=== PATIENT | female | born 1955 | race Caucasian/White ===

== ENCOUNTER 2019-03-22 13:42 | Inpatient (IN) ==
[2019-03-22] MEDS ORDERED: FENTANYL IV ONE (14:22)
[2019-03-22 14:43] LABS: BASO# 0.01 X1000 (0.0-0.2); BASO% 0.1 % (0.0-0.8); EOS% 1.3 % (0.0-10.0); HEMATOCRIT 39.4 % (37.0-47.0); HEMOGLOBIN 12.6 g/dL (12.0-16.0); IMM GRAN# 0.02 X1000 (0.0-0.04); IMM GRAN% 0.3 % (0.0-0.5); LYMPH# 3.34 X1000 (1.2-3.4); LYMPH% 42.9 % (20.5-51.1); MCH 30.2 PG (27-31); MCV 94.5 FL (81-99); MONO% 7.7 % (1.7-9.3); MPV 12.4 FL (7.4-10.4); NEUT# 3.71 X1000 (1.4-6.5); NEUT% 47.7 % (42.2-75.2); PLT 212 X1000 (130-400); RBC 4.17 XMIL (4.2-5.4); RDW 13.6 % (11.5-14.5); WBC 7.78 X1000 (4.8-10.8)
[2019-03-22 14:44] LABS: INR 0.91; PROTIME 12.7 Seconds (11.0-16.0)
[2019-03-22 14:45] LABS: PTT 28.1 Seconds (22.3-41.8)
[2019-03-22 14:53] LABS: AGAP 13; ALBUMIN 4.4 g/dL (3.5-5.0); ALKALINE PHOSPHATASE 86 U/L (32-104); BUN 11 mg/dL (8-22); CALCIUM 9.2 mg/dL (8.8-10.2); CHLORIDE 106 mmol/L (98-107); COSMO 282; CREATININE 0.8 mg/dL (0.5-0.9); ESTIMATED GFR > 60; GLUCOSE 129 mg/dL (70-104); GOT 16 U/L (10-30); GPT 14 U/L (10-36); POTASSIUM 3.6 mmol/L (3.5-5.1); SODIUM 141 mmol/L (136-145); TCO2 22 mmol/L (25-35); TOTAL PROTEIN 7.2 g/dL (6.3-8.3)
--- NOTE | 2019-03-22 15:14 | Diag Imaging Result Doc PS360 ---
EXAM: CHEST-1 VIEW - 03/22/2019 HISTORY: chest pain TECHNIQUE: Portable chest COMPARISON: 03/07/2017 FINDINGS: Heart size is normal. There are apparent COPD changes similar to prior. Compared to prior, there are no acute changes identified. There is no pleural effusion or pneumothorax identified. IMPRESSION: Apparent COPD changes. No acute changes. Electronically signed by Kevin Mendez 03/22/2019 3:11 PM
[2019-03-22] MEDS ORDERED: MORPHINE IV PRN (15:36)
[2019-03-22] MEDS ORDERED: NS 1,000 ML IV ONE (15:36)
[2019-03-22] MEDS ORDERED: TYLENOL PO PRN ×2 (15:36→19:57)
[2019-03-22] MEDS ORDERED: ZOFRAN IV PRN ×2 (15:36→19:57)
--- NOTE | 2019-03-22 15:36 | PROVIDER DOCUMENTATION ---
This chart was entered by Nicol Swenson Scribe, acting as scribe for Shukri Escobar MD. HPI-Chest Pain - General Chief Complaint: Shoulder Pain Stated Complaint: LT ARM PAIN, CHEST PAIN Time Seen by Provider: 03/22/19 14:09 Source: patient Allergies/Adverse Reactions: Patient Allergies Allergy/AdvReac Type Severity Reaction Status Date / Time azithromycin Allergy Severe ITCHING Verified 02/02/19 12:16 [From Zithromax Z-William] codeine [Codeine] Allergy Severe NAUSEA/VOMI Verified 02/02/19 12:16 TING Penicillins Allergy Severe ANAPHYLAXIS Verified 02/02/19 12:16 Home Medications: Home Medication List Medication Instructions Recorded Confirmed Last Taken Type Thyroid,Pork [Napanoch Thyroid] 90 mg PO DAILY #30 tablet 10/24/16 03/22/19 03/06/17 07:00 Rx - History of Present Illness-CP Nature of Presenting Problem: Patient is a 63 year old female who presents with left side chest pain that radiates to left arm. States pain has been present intermittently for 1 month. Reports pain worsened today and had dizziness with pain. Denies nausea and vomiting Location: reports: other (left) Chest Pain Radiation: reports: arms (left) Quality of Pain: reports: sharp Severity in ED: mild Onset/Duration: other (1 month) Timing: still present, intermittent, getting worse Context/Activities at Onset: reports: light activity Modifying Factors: improves with: nothing Associated Symptoms: reports: dizziness Prior Chest Pain/Cardiac Workup: denies: cardiac cath, echocardiography, stress test Similar Symptoms Previously?: Yes Recently Seen Here or By Another Healthcare Provider: No Review of Systems - Adult - REVIEW OF SYSTEMS - ADULT Constitutional: reports: no symptoms reported Eyes: reports: no symptoms reported Ears, Nose, Mouth & Throat: reports: no symptoms reported Cardiovascular: reports: see HPI, chest pain. denies: irregular heart rate, palpitations Respiratory: reports: no symptoms reported Gastrointestinal: reports: no symptoms reported Genitourinary: reports: no symptoms reported Musculoskeletal: reports: see HPI, other (left shoulder pain). denies: back pain, neck pain Integumentary: reports: no symptoms reported Neurological: reports: see HPI, dizziness/vertigo (dizziness). denies: headache/migraines, seizure, syncope Psychiatric: reports: no symptoms reported Endocrine: reports: no symptoms reported Hematologic/Lymphatic: reports: no symptoms reported Allergic/Immunologic: reports: no symptoms reported All Other Systems: Reviewed and Negative Past History - Adult - PAST MEDICAL HISTORY-ADULT Review of Records: reports: Old Records Reviewed, Social history reviewed & non- contributory. Major Childhood Illnesses: reports: denies history Cardiovascular: reports: denies history Respiratory: reports: denies history Gastrointestinal: reports: denies history Obstetrical/Gynecological: reports: denies history Genitourinary: reports: denies history Musculoskeletal: reports: denies history Neurological: reports: denies history Psychiatric: reports: denies history Endocrine/Immune: reports: thyroid disorder Other Conditions: reports: denies history - PRIOR SURGERIES/PROCEDURES Surgical/Procedure History: reports: hysterectomy, hernia repair - IMMUNIZATION STATUS Childhood Immunizations: See Nurse Assessment Flu Vaccine: See Nurse Assessment - FAMILY HISTORY Family History: CAD under 55yo (brother at 30yo) - SOCIAL HISTORY Smoking: cigarettes, greater than 1 pack/day Provider spent 3-5 mins advising pt. on dangers of tobacco.: Discussed manners to quit use, and f/u contacts for add'l counseling. Substance Use: denies Physical Exam-General - PHYSICAL EXAM-ADULT Initial Vital Signs Reviewed: Yes - CONSTITUTIONAL General Appearance: alert, no apparent distress. negative: lethargic - HEAD, EARS, NOSE, MOUTH & THROAT HENMT: normocephalic/atraumatic, moist mucous membranes. negative: angioedema - MUSCULOSKELETAL Extremity: normal inspection. negative: erythema, swelling - SKIN Integumentary: normal color, normal turgor, warm/dry. negative: diaphoresis, ecchymosis, rash - NEUROLOGIC Neurologic: grossly normal. negative: aphasia, facial droop - PSYCHIATRIC Psych/Mental Status: normal mood/affect, oriented x 3. negative: disheveled Progress - PLAN OF CARE/RESULTS Progress/Plan/Lab Results: Vital Signs - 8 hr 03/22/19 13:48 Temperature 98.0 F Pulse Rate 72 Respiratory Rate 16 Blood Pressure 112/088 O2 Sat by Pulse Oximetry 98 Laboratory Results - last 24 hr 03/22/19 03/22/19 03/22/19 14:00 14:00 14:00 WBC 7.78 RBC 4.17 L Hgb 12.6 Hct 39.4 MCV 94.5 MCH 30.2 MCHC 32.0 L RDW Std Deviation 13.6 Plt Count 212 MPV 12.4 H Immature Gran % (Auto) 0.3 Neut % (Auto) 47.7 Lymph % (Auto) 42.9 [place] % (Auto) 7.7 Eos % (Auto) 1.3 Baso % (Auto) 0.1 Immature Gran # (Auto) 0.02 Neut # (Auto) 3.71 Lymph # (Auto) 3.34 [place] # (Auto) 0.60 H Eos # (Auto) 0.10 Baso # (Auto) 0.01 PT INR PTT (Actin FS) Sodium 141 Potassium 3.6 Chloride 106 Carbon Dioxide 22 L Anion Gap 13 BUN 11 Creatinine 0.8 Estimated GFR/1.73 m2 > 60 BUN/Creatinine Ratio 14 Glucose 129 H Calculated Osmolality 282 Calcium 9.2 Total Bilirubin 0.20 AST 16 ALT 14 Alkaline Phosphatase 86 Troponin T < 0.010 [id number] Pept Total Protein 7.2 Albumin 4.4 Globulin 3.0 Albumin/Globulin Ratio 2.0 03/22/19 03/22/19 14:00 14:00 WBC RBC Hgb Hct MCV MCH MCHC RDW Std Deviation Plt Count MPV Immature Gran % (Auto) Neut % (Auto) Lymph % (Auto) [place] % (Auto) Eos % (Auto) Baso % (Auto) Immature Gran # (Auto) Neut # (Auto) Lymph # (Auto) [place] # (Auto) Eos # (Auto) Baso # (Auto) PT 12.7 INR 0.91 PTT (Actin FS) 28.1 Sodium Potassium Chloride Carbon Dioxide Anion Gap BUN Creatinine Estimated GFR/1.73 m2 BUN/Creatinine Ratio Glucose Calculated Osmolality Calcium Total Bilirubin AST ALT Alkaline Phosphatase Troponin T [id number]-[id number] Pept 113 Total Protein Albumin Globulin Albumin/Globulin Ratio Orders Category Date Time Status EKG PRN for Chest Pain ORDERED Care 03/22/19 14:20 Active cxr [CHEST-1 VIEW] [RAD] Stat Exams 03/22/19 14:20 Completed CBC WITH ELECTRONIC DIFF [HEME] Stat Lab 03/22/19 14:00 Completed COMPREHENSIVE METABOLIC PANEL [CHEM] Stat Lab 03/22/19 14:00 Completed PRO B-NATRIURETIC PEPTIDE Stat Lab 03/22/19 14:00 Completed PROTIME WITH INR [COAG] Stat Lab 03/22/19 14:00 Completed PTT [COAG] Stat Lab 03/22/19 14:00 Completed TROPONIN T Stat Lab 03/22/19 14:00 Completed Fentanyl Med 03/22/19 14:22 Discontinued 50 microgm IV NOW ONE Workup negative, spoke with Dr. Wilson and will admit to his service for a chest pain workup Result Diagrams: 03/22/19 14:00 03/22/19 14:00 - EKG 1 Time of EKG reading by physician:: 13:53 EKG Read and Signed by:: Shukri Escobar EKG Interpretation (*Must complete 3 of following elements*): Normal Rate: 73 Rhythm: normal sinus rhythm [place]: normal QRS: normal [place] Interval: normal ST Wave: normal Comments: normal ECG - XRAY 1 XRAY Study: Chest Impression: See EMR Report ( EXAM: CHEST-1 VIEW - 03/22/2019 HISTORY: chest pain TECHNIQUE: Portable chest COMPARISON: 03/07/2017 FINDINGS: Heart size is normal. There are apparent COPD changes similar to prior. Compared to prior, there are no acute changes identified. There is no pleural effusion or pneumothorax identified. IMPRESSION: Apparent COPD changes. No acute changes. Electronically signed by Kevin Mendez 03/22/2019 3:11 PM 03/22/19 1511 Interpreting Physician: Kevin Mendez MD Dictated Date/Time: 03/22/19 1509 cc: Shukri Escobar MD; None,PCP) - CONSULTS/PCP/HOSPITALIST Notification #1 *Consult/PCP/Hospitalist*: Dr. Wilson Time Discussed: 15:30 Reason/Comments: Dr. Escobar consulted with Dr. Wilson about patient. Departure - Departure Date of Disposition Decision: 03/22/19 Time of Disposition Decision: 15:34 DIAGNOSIS: Chest pain Qualifiers: Chest pain type: other chest pain Qualified Code(s): R07.89 - Other chest pain; R07.8 - Other chest pain Disposition: ADMITTED INPATIENT 09 Certified Medical Emergency: Emergent Condition: Stable Referrals and Follow-Ups: None,PCP [Primary Care Provider] - - Critical Care Note This patient required my direct & personal management of CC.: No Attestation - Physician/ DALJIT Attestation Patient care was provided by Advanced Practice Provider:: No The physician spent face to face time with patient:: Yes Advanced Practice Provider documentation review:: Supervising physician onsite and consulted in the evaluation and care of this patient. The physician did have a face to face encounter with the patient. This chart was documented by the indicated scribe, (Nicol Swenson Scribe) and accurately reflects the services I performed and decisions made by me, Shukri Escobar MD, as attested by the provider's signature.
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
--- NOTE | 2019-03-22 17:43 | Diag Imaging Result Doc PS360 ---
EXAM: CT ANGIOGRAM PULMONARY ARTERIES - 03/22/2019 HISTORY: progressive sob, smoker TECHNIQUE: CT angiogram pulmonary arteries with intravenous contrast. Axial, 2-D coronal MIP, and 3-D MIP images are obtained. COMPARISON: None. FINDINGS: There are no filling defects identified in the pulmonary arteries. There is no indication of aortic dissection. There is small apparent fibrosis/scarring with peripheral honeycombing at the left upper lobe. There is mild dependent atelectasis. There is no consolidation, pleural effusion, or pneumothorax identified. There is a nonspecific 4 mm nodular opacity at the right middle lobe. There are nonspecific small mediastinal lymph nodes. There are no substantially less than enlarged mediastinal or hilar lymph nodes identified. There is a medium size hiatal hernia. Included sections of upper abdomen show colonic diverticulosis. IMPRESSION: No evidence of pulmonary embolism. Some fibrosis/scarring at left upper lobe. No evidence of pneumonia. No pneumothorax. Nonspecific 4 mm nodular opacity at right middle lobe. Follow-up per Fleischner Society guidelines is recommended. Nonspecific small mediastinal lymph nodes. Medium size hiatal hernia. Electronically signed by Kevin Mendez 03/22/2019 5:41 PM
--- NOTE | 2019-03-22 18:27 | EKG Report ---
Test Performed on : 03/22/2019 1:53:48 PM Test Reason : cp Blood Pressure : / mmHG Vent. Rate : 073 BPM Atrial Rate : 073 BPM P-R Int : 158 ms QRS Dur : 072 ms QT Int : 390 ms P-R-T Axes : 040 045 037 degrees QTc Int : 429 ms Normal sinus rhythm. Normal ECG When compared with ECG of 08-MAR-2017 06:56, No significant change was found Unconfirmed Result
[2019-03-22] MEDS: ASPIRIN PO SCH (20:50)
[2019-03-22] MEDS ORDERED: LOVENOX SUBQ SCH (21:00)
[2019-03-23 05:35] LABS: HEMATOCRIT 38.3 % (37.0-47.0); HEMOGLOBIN 12.2 g/dL (12.0-16.0); MCHC 31.9 g/dL (33-37); MCV 94.1 FL (81-99); MPV 12.3 FL (7.4-10.4); RBC 4.07 XMIL (4.2-5.4); RDW 13.4 % (11.5-14.5); WBC 6.01 X1000 (4.8-10.8)
[2019-03-23 06:01] LABS: AGAP 10; BUN 13 mg/dL (8-22); CALCIUM 9.5 mg/dL (8.8-10.2); CHLORIDE 109 mmol/L (98-107); COSMO 279; CREATININE 0.8 mg/dL (0.5-0.9); ESTIMATED GFR > 60; GLUCOSE 96 mg/dL (70-104); POTASSIUM 4.2 mmol/L (3.5-5.1); SODIUM 140 mmol/L (136-145); TCO2 22 mmol/L (25-35)
[2019-03-23] MEDS ORDERED: PRILOSEC PO SCH (07:00)
[2019-03-23] MEDS: ASPIRIN PO SCH (08:45)
[2019-03-23] MEDS ORDERED: THYROID PO SCH (09:00)
--- NOTE | 2019-03-23 10:21 | PROGRESS NOTE ---
DATE: 03/23/2019 SUBJECTIVE: The patient reports no chest pain is gone. Denies any fever or chills. OBJECTIVE: Vital Signs: Temperature 98 degrees, heart rate 65, respiratory rate 18, blood pressure 124/51, O2 saturation 100% on room air. General: This is a 63-year-old female lying in bed, in no acute distress. Cardiovascular: S1 and S2 heard. No murmurs, gallops, or rubs. Regular rate and rhythm. Respiratory: Decreased breath sounds globally. No crackles or wheezing noted in both pulmonary bases. Patient not using any accessory muscles or having work of breathing. Abdomen: Soft, nontender to palpation. Bowel sounds present. No organomegaly. Extremities: No clubbing, cyanosis, or edema. Peripheral pulses present in both legs. Neurological: Patient alert and oriented x3. Moves 4 extremities. LABORATORY DATA: Three sets of troponin have been checked and those are normal. ASSESSMENT: 1. Chest pain. 2. Hypertension. 3. Subclinical chronic obstructive pulmonary disease. 4. Fibromyalgia. PLAN: At this point, the patient is stable. She has been admitted for chest pain. Troponin has been checked 3 times and those are negative. At this point, we are waiting for first echocardiogram. We are planning to do a Lexiscan stress test on Monday. We will see what it shows. If that exam is normal, we will discharge this patient. A CT angio of the chest done for progressive dyspnea was negative for PE, just shows some emphysematous changes related to COPD. At this point, we will continue to monitor. cc: Juan Francisco Rodarte MD
[2019-03-23 11:42] VITALS: BP 159/80
--- NOTE | 2019-03-23 16:13 | DISCHARGE SUMMARY ---
ADMISSION DATE: 03/22/2019 DISCHARGE DATE: 03/23/2019 ADMISSION DIAGNOSES: 1. Chest pain. 2. Hypertension. 3. Subclinical chronic obstructive pulmonary disease. 4. Fibromyalgia. DISCHARGE DIAGNOSES: 1. Chest pain that has resolved. Wants to have Lexiscan as an outpatient. 2. Hypertension, stable. 3. Chronic obstructive pulmonary disease, no exacerbation. 4. Fibromyalgia. 5. Tobacco abuse. CONSULTS: None. SURGERIES AND PROCEDURES: None. HOSPITAL COURSE: Ms. Erin Yeager is a 63-year-old female who presented with complaints of progressively worsening chest pain. She described left-sided sharp pain. She reports that the pain is not worse with activity. There is nothing that makes it worse or makes it better. It only lasts for a few minutes and then goes away. There is no associated vomiting or diaphoresis. She reports having a brother who had a heart attack with open heart surgery in his 30s. Cardiac enzymes are negative. She had a echocardiogram performed that has not resulted yet. Being chest pain free, we will go ahead and let her go on Monday for an outpatient cardiac stress test. She will be able to follow up with Cardiology. DISCHARGE VITAL SIGNS: Temperature 97.6 degrees, heart rate 68, respiratory rate 18, blood pressure 159/80, O2 saturation 100% on room air. DISCHARGE LAB DATA: White blood cells 6000, hemoglobin 12, hematocrit 38, platelet count 194,000. Sodium 140, potassium 4.2, BUN 13, creatinine 0.8, glucose 96. Calcium 9.5. Troponin less than 0.01. She did have a TSH level of 0.01. IMAGIN. Pulmonary arteriogram. No PE. 2. Chest x-ray. COPD. 3. EKG. Sinus rhythm, rate 73, QTc 429, no ST changes. DISCHARGE MEDICATIONS: 1. Aspirin 325 mg p.o. daily. 2. Prilosec 20 mg p.o. daily. DISCHARGE DIET: Regular. DISCHARGE ACTIVITY: As tolerated. 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 DISCHARGE INSTRUCTIONS: If chest pain returns, please seek medical attention immediately. If there is any shortness of breath, lightheadedness, please seek medical attention. You will also need to follow up with a primary care provider for the thyroid, TSH level being low. DISCHARGE DISPOSITION: Home. Dictated by ALEKSANDER Baker for Juan Francisco Rodarte MD Addendum: Patient seen and examined by myself. Agree with ALEKSANDER note. It reflects my assessment and plan. Patient is discharged from hospital in stable condition. Will call office to get her Lexiscan done as outpatient. Will see her PCP in a week. cc: ALEKSANDER Baker MD [facility]
--- NOTE | 2019-03-23 16:45 | ECHO REPORT ---
ORDER DATE: 03/22/2019 INTERPRETING PHYSICIAN: Bob Mccoy MD. ECHOCARDIOGRAPHIC MEASUREMENTS: 1. Interventricular septum 1.0. 2. Left ventricular posterior wall 1.0. 3. Diastolic diameter 3.9. 4. Left atrium 3.3. SUMMARY OF THE 2-DIMENSIONAL FINDINGS: 1. Aortic valve leaflets are trileaflet. 2. Mitral valve was normal. 3. Tricuspid valve was normal. 4. Pulmonic valve was normal. 5. Peak velocity across the aortic valve less than 2 m/sec. 6. There is no aortic stenosis or regurgitation. 7. There is trace tricuspid regurgitation. Peak velocity across the tricuspid valve was 2.1 m/sec. 8. Peak velocity across the aortic valve less than 2 m/sec. By Doppler studies, there is no aortic stenosis or regurgitation. 9. There is mild mitral regurgitation. 10. Normal left ventricular cavity size. Estimated ejection fraction of 60 to 65 percent. 11. There is no pericardial effusion, or obvious intracardiac mass or thrombus seen. cc: MD Juan Francisco Mtz MD
== END 2019-03-23 16:18 | disposition home or self-care (01) | DRG 313 ==
LOC: P.ED 13:42 → P.MEDSURG 19:35
PROVIDERS: ATTEND Internal Medicine